=== PATIENT | female | born 1990 | race Caucasian/White ===

== ENCOUNTER 2021-11-17 07:08 | Day surgery (SDC) | payer OTHER ==
[~2021-11-17] VITALS: Ht 162.6 cm; Wt 87.4 kg
[~2021-11-17 07:08] MED LIST: AMOCLA875 PO
[2021-11-17] MEDS ORDERED: NAPR500 PO (07:51)
[2021-11-17] MEDS ORDERED: ESCI10 PO (07:51)
[2021-11-17] MEDS ORDERED: PRAM.125 PO (07:51)
--- NOTE | 2021-11-17 09:07 | NUR ---
11/17/21 0907 SYLVIA RAMSAY 10MLS OF LIDOCAINE 2% WITH EPI 1:100,000 INJECTED INTO RWRIST PRIOR TO STERILE PREP BY DR WEEKS.
--- NOTE | 2021-11-17 10:06 | NUR ---
11/17/21 1006 JILLIAN MARROQUIN PT AMBULATING W/O DIFF. UP TO RESTROOM PRIOR TO DISCHARGE
== END 2021-11-17 10:04 | disposition home or self-care (01) ==
LOC: ORSCSDS 07:08
PROVIDERS: Orthopaedic Surgery
PROC: 01N50ZZ Release Median Nerve, Open Approach (ICD-10-PCS; principal; 2021-11-17 09:00)
DX: G56.03 Carpal tunnel syndrome, bilateral upper limbs (principal); F41.8 Other specified anxiety disorders; Z79.899 Other long term (current) drug therapy
CPT/HCPCS: J1100; J2250; J2405; J2704; J3010

== ENCOUNTER 2022-08-03 07:22 | Observation (INO) | payer OTHER ==
[~2022-08-03] VITALS: Ht 160 cm; Wt 68.0 kg
[~2022-08-03 07:22] MED LIST changes: +ESCI10 PO; +NAPR500 PO; +PRAM.125 PO
[2022-08-03 08:51] LABS: BASOPHILS ABSOLUTE AUTO 0.02 K/mm3 (0.00-0.23); BASOPHILS PERCENT AUTO 0 % (0-2); EOSINOPHILS ABSOLUTE AUTO 0.04 K/mm3 (0.00-0.68); EOSINOPHILS PERCENT AUTO 1 % (0-6); Hematocrit 39.8 % (33.0-51.0); Hemoglobin 13.6 g/dL (11.5-16.0); IMMATURE GRAN ABSOLUTE AUTO 0.02 K/mm3 (0.00-0.10); IMMATURE GRAN PERCENT AUTO 0 % (0-1); LYMPHOCYTES ABSOLUTE AUTO 1.34 K/mm3 (0.84-5.20); LYMPHOCYTES PERCENT AUTO 21 % (21-46); MONOCYTES ABSOLUTE AUTO 0.59 K/mm3 (0.16-1.47); MONOCYTES PERCENT AUTO 9 % (4-13); Mean Corpuscular HGB 29.2 pg (26.0-34.0); Mean Corpuscular HGB Conc 34.2 g/dL (31.5-36.5); Mean Corpuscular Volume 85 fL (80-100); Mean Platelet Volume 10.1 fL (9.1-12.4); NEUTROPHILS ABSOLUTE AUTO 4.42 K/mm3 (1.96-9.15); NEUTROPHILS PERCENT AUTO 69 % (41-73); Platelet Count 228 K/mm3 (150-400); RDW Standard Deviation 39.9 fL (35.1-46.3); Red Blood Cell Count 4.66 M/mm3 (3.80-5.20); White Blood Cell Count 6.43 K/mm3 (4.00-11.30)
[2022-08-03 09:12] LABS: Alanine Aminotransfer (ALT/SGP 33 U/L (12-78); Albumin, Blood 3.9 g/dL (3.4-5.0); Albumin/Globulin Ratio 1.2 (0.8-1.8); Alk Phos 80 U/L (50-136); Anion Gap 7 mmol/L (6-16); Aspartate Aminotrans (AST/SGOT 39 U/L (12-37); Bilirubin, Total 1.5 mg/dL (0.1-1.0); Blood Urea Nitrogen 13 mg/dL (8-24); Bun/Creatinine Ratio 14.7 (12.0-20.0); CO2, Blood 25 mmol/L (21-32); Calcium, Blood 9.1 mg/dL (8.5-10.1); Chloride, Blood 110 mmol/L (98-108); Creatinine, Blood 0.88 mg/dL (0.40-1.00); Ethanol (Alcohol), Blood, Med <3 mg/dL; Globulin, Blood 3.2 g/dL (2.2-4.0); Glomerular Filtration Rate 88 (60-); Glucose, Blood 105 mg/dL (70-99); Potassium, Blood 3.2 mmol/L (3.5-5.5); Sodium, Blood 142 mmol/L (136-145); Total Protein, Blood 7.1 g/dL (6.4-8.2)
[2022-08-03 23:55] LABS: Source, Urine Clean Catch
[2022-08-04 00:34] LABS: Appearance, Urine Cloudy (Clear); Bilirubin, Urine Neg (Neg); Blood, Urine 3+ (Neg); Color, Urine Yellow (P-Yellow); Glucose Qualitative, Urine Neg (Neg); Ketones, Urine 3+ (Neg); Leukocyte Esterase, Urine 2+ (Neg); Nitrite, Urine Neg (Neg); Protein, Urine 2+ (Neg); Specific Gravity, Urine 1.025 (1.003-1.022); Urobilinogen, Urine NORM (Normal)
[2022-08-04 00:56] LABS: White Blood Cells, Urine 50-100 /hpf (0-5)
[2022-08-04 00:57] LABS: Bacteria Many /hpf; Squamous Epithelial Cells Mod /hpf (Few)
[2022-08-04 01:24] LABS: U Amphetamine Screen Not Detected; U Barbituate Screen Not Detected; U Benzodiazapine Screen DETECTED; U Buprenorphine Screen Not Detected; U Cannabinoids Screen Not Detected; U Cocaine Screen Not Detected; U Methadone Screen Not Detected; U Methamphetamine Screen Not Detected; U Opiates Screen Not Detected; U Oxycodone Screen Not Detected; U Phencyclidine Screen Not Detected; U Propoxyphene Screen Not Detected
[2022-08-04 17:00] VITALS: BP 123/93
== END 2022-08-04 17:05 ==
LOC: ER 07:22 → EOR 07:23
PROVIDERS: ADMIT Emergency Medicine
DX: F31.2 Bipolar disorder, current episode manic severe with psychotic features (principal); Z88.1 Allergy status to other antibiotic agents
CPT/HCPCS: 36415; 80053; 81001; 81025; 85025; 87077; 87086; 87186; 93005; 93010; 96372; 99285-25; A9270; G0378; G0480; J1200; J1630; J2060

== ENCOUNTER 2022-09-03 17:18 | Emergency (ER) | payer OTHER ==
[~2022-09-03] VITALS: Ht 162.6 cm; Wt 86.2 kg
[2022-09-03 17:23] VITALS: BP 150/98
[2022-09-03] MEDS ORDERED: OLAN5 PO (17:37)
[2022-09-03] MEDS ORDERED: HYDROXYZINE PAM25 MG PO (19:10)
[2022-09-03] MEDS ORDERED: ESCI10 PO (19:10)
[2022-09-03] MEDS ORDERED: PRAMIPEXOLE DIHY1 M1 PO (19:11)
[2022-09-03 20:10] LABS: Source, Urine Voided
[2022-09-03 20:23] LABS: Bilirubin, Urine Neg (Neg); Blood, Urine Neg (Neg); Glucose Qualitative, Urine Neg (Neg); Ketones, Urine 1+ (Neg); Leukocyte Esterase, Urine 3+ (Neg); Nitrite, Urine Neg (Neg); Protein, Urine Neg (Neg); Urobilinogen, Urine NORM (Normal); pH, Urine 6.5 (5.0-8.0)
[2022-09-03 20:28] LABS: Color, Urine Pale Yellow (P-Yellow)
[2022-09-03 20:29] LABS: Appearance, Urine Hazy (Clear)
[2022-09-03 20:33] LABS: Bacteria Many /hpf; Mucus Light (0-Heavy); Red Blood Cells, Urine 0-2 /hpf (0-2); Squamous Epithelial Cells Mod /hpf (Few); White Blood Cells, Urine 25-50 /hpf (0-5)
[2022-09-03] MEDS ORDERED: Macrobid 100 M100 MG PO (20:56)
== END 2022-09-03 21:15 | disposition home or self-care (01) ==
LOC: ER 17:18
PROVIDERS: Emergency Medicine
DX: N39.0 Urinary tract infection, site not specified (principal); Z88.1 Allergy status to other antibiotic agents; Z79.899 Other long term (current) drug therapy; Z97.5 Presence of (intrauterine) contraceptive device
CPT/HCPCS: 81001; 81025; 87086; 99284; A9270

== ENCOUNTER 2022-11-25 18:10 | Emergency (ER) | payer OTHER ==
[~2022-11-25] VITALS: Ht 165.1 cm; Wt 61.2 kg
[~2022-11-25 18:10] MED LIST changes: +HYDROXYZINE PAM25 MG PO; +Macrobid 100 M100 MG PO; +OLAN5 PO; +PRAMIPEXOLE DIHY1 M1 PO
[2022-11-25 18:30] VITALS: BP 141/99
== END 2022-11-25 20:20 | disposition home or self-care (01) ==
LOC: ER 18:10
DX: F29 Unspecified psychosis not due to a substance or known physiological condition (principal); Z88.1 Allergy status to other antibiotic agents; Z79.899 Other long term (current) drug therapy
CPT/HCPCS: 99282

== ENCOUNTER 2022-12-23 21:41 | Emergency (ER) | payer OTHER ==
[~2022-12-23] VITALS: Ht 162.6 cm; Wt 64.0 kg
[2022-12-23 22:11] VITALS: BP 123/89
[2022-12-23] MEDS ORDERED: [UNRECOGNIZED DRUG - CODE] PO (22:14)
== END 2022-12-23 22:30 | disposition home or self-care (01) ==
LOC: ER 21:41
DX: Z76.0 Encounter for issue of repeat prescription (principal); Z88.1 Allergy status to other antibiotic agents; Z79.899 Other long term (current) drug therapy
CPT/HCPCS: 99281; A9270

== ENCOUNTER 2022-12-24 21:40 | Emergency (ER) | payer OTHER ==
[~2022-12-24] VITALS: Ht 162.6 cm; Wt 62.2 kg
[~2022-12-24 21:40] MED LIST changes: +[UNRECOGNIZED DRUG - CODE] PO
[2022-12-24 22:10] VITALS: BP 117/82
== END 2022-12-24 22:41 | disposition home or self-care (01) ==
LOC: ER 21:40
DX: Z76.89 Persons encountering health services in other specified circumstances (principal); Z59.00 Homelessness unspecified; Z88.1 Allergy status to other antibiotic agents; Z79.899 Other long term (current) drug therapy; F32.A Depression, unspecified
CPT/HCPCS: 99281; A9270

== ENCOUNTER 2022-12-25 15:59 | Emergency (ER) | payer OTHER ==
[~2022-12-25] VITALS: Ht 162.6 cm; Wt 68.0 kg
[2022-12-25 16:11] VITALS: BP 124/83
[2022-12-25 18:38] LABS: Candida species (DNA Probe) Negative (NEGATIVE); G. vaginalis (DNA Probe) Negative (NEGATIVE); T. vaginalis (DNA Probe) Negative (NEGATIVE)
[2022-12-26 20:11] LABS: HIV AB/P24 AG SCREEN Non Reactive (Non Reactive)
[2022-12-27 05:13] LABS: HBSAG SCREEN Negative (Negative); HCV ANTIBODY Non Reactive (Non Reactive); HEP B CORE AB, TOT Negative (Negative)
== END 2022-12-25 18:09 | disposition home or self-care (01) ==
LOC: ER 15:59
PROVIDERS: Student in an Organized Health Care Education/Training Program
DX: Z11.3 Encounter for screening for infections with a predominantly sexual mode of transmission (principal); Z76.89 Persons encountering health services in other specified circumstances; F32.A Depression, unspecified; Z20.2 Contact with and (suspected) exposure to infections with a predominantly sexual mode of transmission; Z59.02 Unsheltered homelessness; Z88.1 Allergy status to other antibiotic agents; Z79.899 Other long term (current) drug therapy
CPT/HCPCS: 36415; 84703; 86592; 86704; 86803; 87340; 87389; 87480; 87491; 87510; 87660; 99281; A9270

== ENCOUNTER 2022-12-31 23:18 | Emergency (ER) | payer OTHER ==
[~2022-12-31] VITALS: Ht 167.6 cm; Wt 65.8 kg
[2022-12-31 23:29] VITALS: BP 123/74
== END 2023-01-01 01:24 | disposition home or self-care (01) ==
LOC: ER 23:18
DX: Z76.0 Encounter for issue of repeat prescription (principal); Z88.1 Allergy status to other antibiotic agents; Z79.899 Other long term (current) drug therapy; F32.A Depression, unspecified
CPT/HCPCS: 99281; A9270

== ENCOUNTER 2023-01-30 15:53 | Emergency (ER) | payer OTHER ==
[~2023-01-30] VITALS: Ht 162.6 cm; Wt 57.6 kg
[2023-01-30 16:10] VITALS: BP 156/114
[2023-01-30] MEDS ORDERED: LEVE500 PO (16:17)
[2023-01-30] MEDS ORDERED: QUET300 PO (16:17)
== END 2023-01-30 17:08 | disposition home or self-care (01) ==
LOC: ER 15:53
DX: Z76.0 Encounter for issue of repeat prescription (principal); F32.A Depression, unspecified; Z79.899 Other long term (current) drug therapy; Z88.1 Allergy status to other antibiotic agents
CPT/HCPCS: 99281